=== PATIENT | female | born 1985 | race Two or more races ===

== ENCOUNTER 2016-09-15 21:08 | Emergency (ER) | payer MEDICAID ==
[2016-09-16 02:50] LABS: URINE SOURCE CLEAN CATCH
[2016-09-16 02:53] LABS: URINE APPEARANCE CLOUDY; URINE BILIRUBIN NEG (NEG); URINE BLOOD NEG (NEG); URINE COLOR YELLOW; URINE GLUCOSE NEG (NEG); URINE KETONE NEG (NEG); URINE LEUKOCYTE ESTERASE NEG (NEG); URINE NITRATE NEG (NEG); URINE PH 5.5 (5-8); URINE PROTEIN NEG (NEG)
[2016-09-16 02:54] LABS: CULTURE INDICATED? NO
== END 2016-09-16 03:30 | disposition home or self-care (01) ==
LOC: CED 21:08
DX: B02.9 Zoster without complications (principal); R10.9 Unspecified abdominal pain
CPT/HCPCS: 81003; 99284